=== PATIENT | female | born 1945 | race Caucasian/White ===

== ENCOUNTER → 2018-03-23 13:08 | Outpatient (CLI) | payer MEDICARE ==
[2016-01-21 18:03] VITALS: BMI 42.0
[~2018-03-23 13:08] MED LIST: GLUCOPHAGE1000 MG PO; K-TAB10 MEQ PO; LANTUS INSULIN10 ML SC
== END | disposition home or self-care (01) ==
LOC: D.US 13:08
DX: E04.1 Nontoxic single thyroid nodule (principal)

== ENCOUNTER → 2021-03-18 09:46 | Outpatient (CLI) | payer MEDICARE ==
[2016-01-21 18:03] VITALS: BMI 42.0
== END | disposition home or self-care (01) ==
LOC: D.ECHO 09:35
PROVIDERS: ATTEND Family Medicine
DX: R06.09 Other forms of dyspnea (principal)